=== PATIENT | female | born 1995 | race Caucasian/White ===

== ENCOUNTER 2021-08-21 17:44 | Emergency (ER) | payer BC, OTHER, SELFPAY ==
--- NOTE | ~2021-08-21 | XR_ITS ---
EXAMINATION: XR chest 1V portable EXAM DATE: 08/21/2021 22:29 INDICATION: Cough . TECHNIQUE: Portable AP frontal chest x-ray was obtained. There is no prior study for comparison. FINDINGS: The lungs are clear. There are no pleural effusions. The cardiomediastinal silhouette is within normal limits. There is no pneumothorax suspected. The bones and soft tissues are unremarkab le. IMPRESSION: No acute cardiopulmonary findings. Reviewed, dictated and finalized at location [facility]. [facility]
[2021-08-21 17:46] VITALS: BP 147/77; PULSE 74; RESP 17; TEMP 36.4; O2SAT 98
--- NOTE | 2021-08-21 18:23 | WPDEDEXPGENP ---
HPI - General Ped General Chief complaint: Unspecified Stated complaint: can't breath, skin rash, rectal bleed Time Seen by Provider: 08/21/21 18:22 History of Present Illness HPI narrative: Patient a 26-year-old female presents the emergency department with chief complaint of cough blood in stool and rash. Patient reports that she was seen in 2 other emergency departments for this reports that she is currently homeless and reports that she had a bowel movement today that had blood in it. Patient denies fever denies itchiness denies shortness of breath denies angioedema. Related Data Home Medications Medication Instructions Recorded Confirmed No Home Medications 08/21/21 08/21/21 Allergies Allergy/AdvReac Type Severity Reaction Status Date / Time No Known Allergies Allergy Verified 08/21/21 17:49 Pediatric Review of Systems Review of Systems: A 10 system review of systems was completed on the patient and is negative except for what is stated in the HPI. Nursing and ancillary documentation was reviewed. Pediatric Exam Narrative: Physical exam: GENERAL: Well-appearing, well-nourished, and in no acute distress. HEAD: Normocephalic, atraumatic. EYES: PERRLA and EOMI. ENT: Nares clear, no rhinorrhea or epistaxis. Mucous membranes moist. NECK: Supple. CHEST: Clear to auscultation. No respiratory distress. HEART: Regular rate and rhythm. No murmur heard. Normal peripheral pulses. ABDOMEN: Soft, nontender, nondistended, normal active bowel sounds. Stool is guaiac negative EXTREMITIES: Normal range of motion. No edema. SKIN: Warm, dry, there is a raised scaly rash present diffusely. NEURO: No focal deficits. Alert and oriented x3. PSYCH: Normal mood and affect. Course Vital Signs Vital signs: Vital Signs Temperature 36.4 C L 08/21/21 17:46 Pulse Rate 74 08/21/21 17:46 Respiratory Rate 17 08/21/21 17:46 Blood Pressure 147/77 H 08/21/21 17:46 Pulse Oximetry 98 08/21/21 17:46 Temperature 36.5 C 08/21/21 20:22 Pulse Rate 107 H 08/21/21 20:22 Respiratory Rate 17 08/21/21 17:46 Blood Pressure 121/97 H 08/21/21 20:22 Pulse Oximetry 100 08/21/21 20:22 Medical Decision Making Vital Signs Vital Signs: Vital Signs Temperature 36.4 C L 08/21/21 17:46 Pulse Rate 74 08/21/21 17:46 Respiratory Rate 17 08/21/21 17:46 Blood Pressure 147/77 H 08/21/21 17:46 Pulse Oximetry 98 08/21/21 17:46 Temperature 36.5 C 08/21/21 20:22 Pulse Rate 107 H 08/21/21 20:22 Respiratory Rate 17 08/21/21 17:46 Blood Pressure 121/97 H 08/21/21 20:22 Pulse Oximetry 100 08/21/21 20:22 Lab Data Labs: Lab Results 08/21/21 Range/Units 22:33 POC Capillary Glucose 110 H (65-105) mg/dl Discharge Plan Discharge Clinical Impression: Dermatitis URI (upper respiratory infection) Qualifiers: URI type: unspecified viral URI Qualified Code(s): J06.9 - Acute upper respiratory infection, unspecified Patient Disposition: Home, Self-Care Condition: Stable Instructions: Antibiotic Form, Upper Respiratory Infection (ED), Viral Syndrome (ED), Dermatitis (ED) Prescriptions: New methylprednisolone [Medrol (Hong)] 4 mg tablets,dose pack See Rx Instructions .ROUTE .COMPLEX Qty: 21 RF: 0 No Action No Home Medications RF: 0 Follow-up/Referrals: Jamie Lebron MD [Physician] - UNKNOWN,DOCTOR [Primary Care Provider] - Time of Disposition: 22:55
[2021-08-21 20:22] VITALS: BP 121/97; PULSE 107; TEMP 36.5; O2SAT 100
--- NOTE | 2021-08-21 22:31 | ER_ITS ---
This report was recreated on August 25, 2021. Original report was signed by Dr. JoseL Velasco on August 22, 2021 at 0726. HPI - General Ped General Chief complaint: Unspecified Stated complaint: can't breath, skin rash, rectal bleed Time Seen by Provider: 08/21/21 18:22 History of Present Illness HPI narrative: Patient a 26-year-old female presents the emergency department with chief complaint of cough blood in stool and rash. Patient reports that she was seen in 2 other emergency departments for this reports that she is currently homeless and reports that she had a bowel movement today that had blood in it. Patient denies fever denies itchiness denies shortness of breath denies angioedema. Related Data Home Medications Medication Instructions Recorded Confirmed No Home Medications 08/21/21 08/21/21 Allergies Allergy/AdvReac Type Severity Reaction Status Date / Time No Known Allergies Allergy Verified 08/21/21 17:49 Pediatric Review of Systems Review of Systems: A 10 system review of systems was completed on the patient and is negative except for what is stated in the HPI. Nursing and ancillary documentation was reviewed. Pediatric Exam Narrative: Physical exam: GENERAL: Well-appearing, well-nourished, and in no acute distress. HEAD: Normocephalic, atraumatic. EYES: PERRLA and EOMI. ENT: Nares clear, no rhinorrhea or epistaxis. Mucous membranes moist. NECK: Supple. CHEST: Clear to auscultation. No respiratory distress. HEART: Regular rate and rhythm. No murmur heard. Normal peripheral pulses. ABDOMEN: Soft, nontender, nondistended, normal active bowel sounds. Stool is guaiac negative EXTREMITIES: Normal range of motion. No edema. SKIN: Warm, dry, there is a raised scaly rash present diffusely. NEURO: No focal deficits. Alert and oriented x3. PSYCH: Normal mood and affect. Course Vital Signs Vital signs: Vital Signs Temperature 36.4 C L 08/21/21 17:46 Pulse Rate 74 08/21/21 17:46 Respiratory Rate 17 08/21/21 17:46 Blood Pressure 147/77 H 08/21/21 17:46 Pulse Oximetry 98 08/21/21 17:46 Temperature 36.5 C 08/21/21 20:22 Pulse Rate 107 H 08/21/21 20:22 Respiratory Rate 17 08/21/21 17:46 Blood Pressure 121/97 H 08/21/21 20:22 Pulse Oximetry 100 08/21/21 20:22 Medical Decision Making Vital Signs Vital Signs: Vital Signs Temperature 36.4 C L 08/21/21 17:46 Pulse Rate 74 08/21/21 17:46 Respiratory Rate 17 08/21/21 17:46 Blood Pressure 147/77 H 08/21/21 17:46 Pulse Oximetry 98 08/21/21 17:46 Temperature 36.5 C 08/21/21 20:22 Pulse Rate 107 H 08/21/21 20:22 Respiratory Rate 17 08/21/21 17:46 Blood Pressure 121/97 H 08/21/21 20:22 Pulse Oximetry 100 08/21/21 20:22 Lab Data Labs: Lab Results 08/21/21 Range/Units 22:33 POC Capillary Glucose 110 H (65-105) mg/dl Discharge Plan Discharge Clinical Impression: Dermatitis URI (upper respiratory infection) Qualifiers: URI type: unspecified viral URI Qualified Code(s): J06.9 - Acute upper respiratory infection, unspecified Patient Disposition: Home, Self-Care Condition: Stable Instructions: Antibiotic Form, Upper Respiratory Infection (ED), Viral Syndrome (ED), Dermatitis (ED) Prescriptions: New methylpred
[2021-08-21 22:36] LABS: Glucose Point of Care 110 mg/dl (65-105)
[2021-08-21 23:48] VITALS: BP 123/58; PULSE 85; RESP 18; O2SAT 99
== END 2021-08-21 23:48 | disposition home or self-care (01) ==
LOC: ANHED 23:01
PROVIDERS: Emergency Provider Emergency Medicine
DX: J06.9 Acute upper respiratory infection, unspecified (principal); L30.9 Dermatitis, unspecified
CPT/HCPCS: 71045; 82948; 99283

== ENCOUNTER 2022-04-04 17:26 | Emergency (ER) | payer OTHER, SELFPAY ==
[2022-04-04 17:30] VITALS: BP 117/65; PULSE 103; RESP 118; TEMP 36.3; O2SAT 98
--- NOTE | 2022-04-04 17:45 | PC.NURSE ---
Pt presents with complaint of a bacterial infection to the wounds on her bilateral hands and her right great toe. Pt had wounds dressed with electrical tape, states she doesn't have bandages at home so she did her best caring for her wounds . Reports she has been soaking her wounds in nail armenian remover to help with the bacterial infection. Pt's skin very pruny, pt's clothing soaking wet. Large wet fields on bed sheet surrounding patient. Reports she was showering because its so dirty its disgusting . Pt reports there is stuff coming out of her wounds, provider and RN at bedside assured patient there is nothing coming out of wounds, and that there are just a couple very superficial abrasions that do no appear infected or irritated. Pt reports, yes there is, see its on your pants now! Pt with pressured speech and very anxious, unable to sit still. Pt smells of body odor. Denies any drug use anymore , states that other people in the house were doing drugs but that she does not anymore.
--- NOTE | 2022-04-04 17:46 | ED.GENADULT ---
HPI - General Adult General Chief complaint: Wound/Laceration Stated complaint: infection left hand Time Seen by Provider: 04/04/22 17:34 History of Present Illness HPI narrative: 26-year-old female presents to the emergency room complaining of reported infected wounds to her hands and her feet. Patient admits to being homeless, and states she was at a friend's house helping the landscape. Patient presented to triage with her hands wrapped and paper towels and electrical tape. Patient is asking for Band-Aids to help cover her multiple infected wounds. Patient denies drug use. Denies SI or HI. Related Data Allergies Allergy/AdvReac Type Severity Reaction Status Date / Time No Known Allergies Allergy Verified 04/04/22 17:33 Review of Systems Review of Systems: CONSTITUTIONAL: Denies fever, chills, or sweats. EYES: Denies visual changes, redness, or discharge. ENT: Denies rhinorrhea, congestion, sore throat, or otalgia. CARDIOVASCULAR: Denies chest pain, palpitations, or edema. RESPIRATORY: Denies cough or dyspnea. GASTROINTESTINAL: Denies abdominal pain, nausea, vomiting, or diarrhea. GENITOURINARY: Denies dysuria or hematuria. SKIN: Reports open wounds to hands and feet MUSCULOSKELETAL: Denies back pain, joint pain, or myalgia. NEUROLOGIC: Denies headache, numbness, dizziness, or weakness. PSYCHIATRIC: Denies anxiety or depression. Exam Narrative: GENERAL: Well-appearing, well-nourished, no physical limitations, and in no acute distress. HEAD: Normocephalic, atraumatic. EYES: Conjunctivae normal, PERRLA and EOMI CHEST: Clear to auscultation. No respiratory distress. No wheezes rales or rhonchi. No tenderness. HEART: Regular rate and rhythm. No murmur heard. Normal peripheral pulses. EXTREMITIES: Normal range of motion. No edema. No clubbing or cyanosis SKIN: Multiple draining blisters to hands and right great toe, no erythema, no soft tissue swelling, no signs of lymphangitic spread NEURO: No focal deficits. Alert and oriented x3. MAEW. CN's II-XI intact bilaterally, normal gait PSYCH: Delusional, tangential, demonstrating flight of ideas, pressured speech Course Vital Signs Vital signs: Vital Signs Temperature 36.3 C L 04/04/22 17:30 Pulse Rate 103 H 04/04/22 17:30 Respiratory Rate 118 H 04/04/22 17:30 Blood Pressure 117/65 04/04/22 17:30 Pulse Oximetry 98 04/04/22 17:30 Temperature 36.3 C L 04/04/22 17:30 Pulse Rate 103 H 04/04/22 17:30 Respiratory Rate 118 H 04/04/22 17:30 Blood Pressure 117/65 04/04/22 17:30 Pulse Oximetry 98 04/04/22 17:30 Medical Decision Making Vital Signs Vital Signs: Vital Signs Temperature 36.3 C L 04/04/22 17:30 Pulse Rate 103 H 04/04/22 17:30 Respiratory Rate 118 H 04/04/22 17:30 Blood Pressure 117/65 04/04/22 17:30 Pulse Oximetry 98 04/04/22 17:30 Temperature 36.3 C L 04/04/22 17:30 Pulse Rate 103 H 04/04/22 17:30 Respiratory Rate 118 H 04/04/22 17:30 Blood Pressure 117/65 04/04/22 17:30 Pulse Oximetry 98 04/04/22 17:30 Discharge Plan Discharge Clinical Impression: Blister Patient Disposition: Home, Self-Care Condition: Stable Instructions: Antibiotic Form Prescriptions: No Action methylprednisolone [Medrol (Hong)] 4 mg tablets,dose pack See Rx Instructions .ROUTE .COMPLEX Qty: 21 0RF Rx Instructions: orally per package directions Follow-up/Referrals: UNKNOWN,DOCTOR [Primary Care Provider] - Time of Disposition: 17:51
== END 2022-04-04 18:14 | disposition home or self-care (01) ==
LOC: ANHED 18:13
PROVIDERS: Emergency Provider Nurse Practitioner Family
DX: S60.522A Blister (nonthermal) of left hand, initial encounter (principal); S60.521A Blister (nonthermal) of right hand, initial encounter; S90.421A Blister (nonthermal), right great toe, initial encounter; Z59.00 Homelessness unspecified; X58.XXXA Exposure to other specified factors, initial encounter; Y93.H2 Activity, gardening and landscaping
CPT/HCPCS: 99282